=== PATIENT | male | born 1940 | race Caucasian/White ===

== ENCOUNTER 2018-02-18 10:25 | Emergency (ER) | payer MEDICARE, BC ==
--- NOTE | 2018-02-18 10:45 | UC ---
Lower Extremity/Ankle HPI - HPI Summary HPI Summary: 77 yo male presents with right calf pain for the last 5 days. He tells me that 5 days ago he developed right posterior knee pain and mild right calf cramping. Prior to this, he mentions that he did a lot of walking as he was at two different concerts and was on his feet a lot. Since that time his pain has increased. He has been taking aleve, resting, and elevating it as much as possible with little relief. He is able to ambulate, but has significant pain and limp. - History of Current Complaint Chief Complaint: UCLowerExtremity Stated Complaint: LEG PAIN Time Seen by Provider: 02/18/18 10:45 Hx Obtained From: Patient, Family/Felt Checker Onset/Duration: Gradual Onset Severity Initially: Moderate Severity Currently: Severe Pain Intensity: 7 Pain Scale Used: 0-10 Numeric Aggravating Factor(s): Standing, Ambulation Able to Bear Weight: Yes - Allergies/Home Medications Allergies/Adverse Reactions: Allergies Allergy/AdvReac Type Severity Reaction Status Date / Time No Known Allergies Allergy Verified 02/18/18 10:34 Home Medications: Home Medications Levothyroxine TAB* [Synthroid 150 MCG TAB*] 150 mcg PO DAILY 02/18/18 [History Confirmed 02/18/18] Losartan TAB* [Cozaar TAB*] 25 mg PO DAILY 02/18/18 [History Confirmed 02/18/18] [place]-3 Acid Ethyl Esters [Lovaza] 1 gm PO DAILY 02/18/18 [History Confirmed 04/28] diazePAM [Valium] 5 mg PO DAILY PRN 02/18/18 [History Confirmed 02/18/18] PMH/Surg Hx/FS Hx/Imm Hx - Additional Past Medical History Additional PMH: Anxiety Endocrine History: Hypothyroidism Cardiovascular History: Hypertension - Surgical History Surgical History: Yes Surgery Procedure, Year, and Place: bilat shoulders hernia appy - Family History Known Family History: Positive: Hypertension - Social History Occupation: Retired Lives: With Family Alcohol Use: Weekly Substance Use Type: None Smoking Status (MU): Never Smoked Tobacco Review of Systems Constitutional: Negative Skin: Negative Respiratory: Negative Cardiovascular: Negative Gastrointestinal: Negative Neurovascular: Negative Musculoskeletal: Other: - Right knee and calf pain Neurological: Negative Psychological: Negative All Other Systems Reviewed And Are Negative: Yes Physical Exam - Summary Physical Exam Summary: GENERAL: NAD. WDWN. No pain distress. SKIN: No rashes, sores, lesions, or open wounds. NECK: Supple. Nontender. No lymphadenopathy. CHEST: No accessory muscle use. Breathing comfortably and in no distress. CV: Pulses intact popliteal, PT, and DP. Brisk cap refill. MSK: RIGHT KNEE/CALF: FROM. Moderate TTP superior right calf. Positive viktoria's sign. Strength 5/5. No edema or obvious bony deformities. NEURO: Alert. Sensations intact and symmetric B/L LEs PSYCH: Age appropriate behavior. Triage Information Reviewed: Yes Vital Signs: Initial Vital Signs Temp 98 F 02/18/18 10:31 Pulse 81 02/18/18 10:31 Resp 18 02/18/18 10:31 BP 162/100 02/18/18 10:31 Pulse Ox 100 02/18/18 10:31 Vital Signs Reviewed: Yes Lower Extremity Course/Dx - Course Course Of Treatment: US: IMPRESSION: #. No evidence for RIGHT lower extremity deep venous thrombosis. #. Small RIGHT popliteal cyst. I suspect his pain is due to his cyst and recent overuse. He was provided with crutches and a walker. Advised to continue RICE and aleve. He is asking for something stronger for pain and mentions that he has had percocet in the past and tolerated it well with good pain relief, therefore will rx a 3 day supply today. Advised to f/u with Sports Med in 3-4 days. iSTOP Reference #: [id number] - Differential Dx/Diagnosis Provider Diagnoses: Right knee pain. Right calf pain Discharge - Sign-Out/Discharge Documenting (check all that apply): Patient Departure - Discharge Plan Condition: Stable Disposition: HOME Prescriptions: oxyCODONE/Acetamin 5/325 MG* [Percocet 5/325 TAB*] 1 tab PO Q8H PRN #9 tab MDD 3 PRN Reason: Pain Patient Education Materials: [facility] Cyst (ED) Referrals: Avinash Ray MD [Primary Care Provider] - [facility] [Provider Group] - As Soon As Possible Additional Instructions: If you develop a fever, shortness of breath, chest pain, new or worsening symptoms - please call your PCP or go to the ED. Your blood pressure was high at todays visit. Please see your primary provider within 4 weeks for recheck and re-evaluation. 1) Please schedule a follow up appointment with Sports Medicine for wednesday or wednesday for a recheck - Billing Disposition and Condition Condition: STABLE Disposition: Home
--- NOTE | 2018-02-18 12:20 | RAD ---
INDICATION: 5 days RIGHT knee and calf pain. COMPARISON: No relevant prior exams available on the [facility] PACS for comparison. TECHNIQUE: Ortiz scale, color Doppler, and spectral analysis of the deep veins of the RIGHT lower extremity. Vessel compression, phasicity, and augmentation assessed. REPORT: The RIGHT common femoral, great saphenous, profunda femoral, femoral, popliteal, peroneal, and posterior tibial veins are patent. The RIGHT gastrocnemius veins appear normally compressible without suggestion of thrombosis. 4.1 x 1.5 x 2.9 cm RIGHT popliteal cyst with evidence for synovitis. No echogenic shadowing foci within the cyst to indicate presence of osseous loose bodies. Patency of the LEFT common femoral vein documented. IMPRESSION: #. No evidence for RIGHT lower extremity deep venous thrombosis. #. Small RIGHT popliteal cyst.
[2018-02-18 13:02] VITALS: BP 149/83
== END 2018-02-18 13:00 | disposition home or self-care (01) ==
LOC: UCEAST 10:25
DX: M25.561 Pain in right knee (principal); M79.661 Pain in right lower leg; M71.21 Synovial cyst of popliteal space [Baker], right knee; E03.9 Hypothyroidism, unspecified; I10 Essential (primary) hypertension; Z82.49 Family history of ischemic heart disease and other diseases of the circulatory system
CPT/HCPCS: 99213; G0463